=== PATIENT | female | born 1985 | race Caucasian/White ===

== ENCOUNTER 2018-05-27 15:49 | Emergency (ER) | payer OTHER | END 2018-05-27 17:51 | disposition home or self-care (01) | LOC: ED 15:49 ==

== ENCOUNTER 2020-04-09 16:38 | Emergency (ER) | payer OTHER ==
[~2020-04-09] VITALS: Ht 149.9 cm; Wt 59.0 kg
[2020-04-09 17:19] VITALS: BP 143/99; Ht 149.9 cm; Wt 59.0 kg
== END 2020-04-09 19:08 | disposition home or self-care (01) ==
LOC: ED 16:38
DX: R10.2 Pelvic and perineal pain (principal)